=== PATIENT | female | born 1975 | race Caucasian/White ===

== ENCOUNTER → 2019-04-30 | Outpatient (CLI) | payer BC, SELFPAY ==
--- NOTE | 2019-04-30 16:19 | MRI_ITS ---
STUDY: MRI RIGHT REARFOOT WITHOUT CONTRAST REASON FOR EXAM: Right foot pain, plantar fasciitis. TECHNIQUE: Standardized fat and water weighted pulse sequences were obtained in all 3 orthogonal planes. COMPARISON: None. FINDINGS: There is very mild edema in the plantar heel pad. Normal posterior tibialis tendon. Normal flexor digitorum longus tendon. Normal flexor hallucis longus tendon. There is a very small volume of fluid in the peroneal tendon sheath (inversion recovery sagittal image 7). The peroneus longus and brevis tendons are morphologically normal. Normal tibialis anterior tendon. Normal extensor hallucis longus tendon. Normal extensor digitorum longus tendons. Normal Achilles tendon and teno-osseous insertion. There is a low-lying soleus muscle (T1 sagittal image 14). There is interstitial edema in the central and lateral cords of the plantar fascia (inversion recovery sagittal images 10-15). There is a small plantar calcaneal enthesophyte with bone edema of the plantar aspect of the calcaneus (inversion recovery sagittal images 9-15). There is no stress fracture line of the calcaneus. Normal intrinsic muscles of the rearfoot. Normal distal tibiofibular syndesmotic ligamentous complex. There is mild thickening of the anterior talofibular ligament (T2 axial image 18) suggestive of mild scarring. Normal calcaneofibular and posterior talofibular ligaments. There is a ganglion cyst at the dorsal aspect of the distal talus extending into the sinus tarsi (inversion recovery sagittal images 8-11) measuring 1.2 cm in AP dimension. Normal deltoid ligamentous complexes. Normal plantar calcaneonavicular (spring) ligament. There is a small tibiotalar joint effusion (inversion recovery sagittal image 11). Normal talar dome. Normal subtalar articulations. Normal talonavicular articulation. Normal calcaneocuboid articulation. Normal navicular-cuneiform articulations. There is a small os trigonum. MRI/Lower Ext/No Jt/w/o IMPRESSION: Plantar fasciitis with reactive bone edema of the plantar aspect of the calcaneus. Very mild peroneal tenosynovitis. Mild thickening of the anterior talofibular ligament suggestive of mild scarring. Small tibiotalar joint effusion. Ganglion cyst at the dorsal aspect of the distal talus extending into the sinus tarsi. Electronically Signed: Vicente Mills MD at 7:49 EDT Tel , Service support ,
== END | disposition home or self-care (01) ==
PROVIDERS: Family Provider Family Medicine; PCP Family Medicine; Referring Provider Podiatrist; Visit Provider Podiatrist
DX: S92.001A Unspecified fracture of right calcaneus, initial encounter for closed fracture (principal); M72.2 Plantar fascial fibromatosis
CPT/HCPCS: 73718

== ENCOUNTER → 2020-05-19 | Outpatient (CLI) | payer OTHER, SELFPAY | END | disposition home or self-care (01) | LOC: LABSPEC 12:04 | PROVIDERS: Referring Provider Family Medicine; Visit Provider Family Medicine | DX: Z03.818 Encounter for observation for suspected exposure to other biological agents ruled out (principal) | CPT/HCPCS: 87635; U0003 ==

== ENCOUNTER → 2020-06-02 | Outpatient (CLI) | payer OTHER, SELFPAY | END | disposition home or self-care (01) | LOC: LABSPEC 11:14 | PROVIDERS: Referring Provider Family Medicine; Visit Provider Family Medicine | DX: Z03.818 Encounter for observation for suspected exposure to other biological agents ruled out (principal) | CPT/HCPCS: 87635; U0003 ==

== ENCOUNTER → 2020-06-16 | Outpatient (CLI) | payer OTHER, SELFPAY | END | disposition home or self-care (01) | LOC: LABSPEC 12:28 | PROVIDERS: Referring Provider Family Medicine; Visit Provider Family Medicine | CPT/HCPCS: 87635; U0003 ==

== ENCOUNTER → 2020-06-30 | Outpatient (CLI) | payer OTHER, SELFPAY | END | disposition home or self-care (01) | LOC: LABSPEC 10:01 | PROVIDERS: Referring Provider Family Medicine; Visit Provider Family Medicine | DX: Z03.818 Encounter for observation for suspected exposure to other biological agents ruled out (principal) | CPT/HCPCS: 87635; U0003 ==

== ENCOUNTER → 2020-07-14 | Outpatient (CLI) | payer OTHER, SELFPAY | END | disposition home or self-care (01) | LOC: LABSPEC 11:57 | PROVIDERS: Referring Provider Family Medicine; Visit Provider Family Medicine | DX: Z03.818 Encounter for observation for suspected exposure to other biological agents ruled out (principal) | CPT/HCPCS: 87635; U0003 ==